=== PATIENT | male | born 1945 | race Caucasian/White ===

== ENCOUNTER 2018-12-19 08:45 | Day surgery (SDC) | payer OTHER ==
[~2018-12-19 08:45] MED LIST: COZAAR50 MG PO; DAFLONEX PO
== END 2018-12-19 15:30 | disposition home or self-care (01) ==
LOC: AMB-ENDOS 08:45
DX: K57.30 Diverticulosis of large intestine without perforation or abscess without bleeding (principal); K64.2 Third degree hemorrhoids